=== PATIENT | female | born 1995 | race Caucasian/White ===

== ENCOUNTER → 2025-01-01 | Outpatient (CLI) | payer BC ==
--- NOTE | 2025-01-02 08:00 | CONSULTATION ---
DATE OF CONSULTATION: 01/01/2025 DICTATING PHYSICIAN: Yashira Velasco M.S., [facility] MODIFIED BARIUM SWALLOW STUDY REPORT REFERRING PHYSICIAN: Archana Khan MD HISTORY OF PRESENT ILLNESS: The patient is a 29-year-old female and consents to this evaluation. The patient's mother was present for this evaluation and history obtained from the patient and medical records. The patient reports symptoms of dysphagia including feeling a throat tightness and neck pain. She notes that this first started on vacation on 11/19. She felt like her mechanism to swallow was not working correctly and she was feeling as if her food would get stuck and her throat would get tight and then she would have a pain in the back of her neck. She has been having to chew her food very thoroughly. She notes that it is harder for her to initiate a swallow. She noted she had a canker sore on part of her tongue and it felt like some of her tongue might have gotten numb from that. The patient has a history of gastritis in the fall of 2021 and also has factor B. CURRENT DIET: In terms of caffeine, the patient has black tea in the morning and a can of Coke Zero during the day. She does not utilize tobacco products or drink alcohol. The patient has chocolate in the form of ice-cream and Oreos. In terms of dairy products, the patient has a small amount of ice-cream, yogurt on a daily basis, and cheese several times a week. The patient notes that she often rotates her meal due to tolerance of foods from her gastritis, so at this point a typical breakfast consists of yogurt, but her last typical breakfast was cranberry, almond, gums. She then snacks in the morning on Cheez-It. Lunch may be a half sandwich with ham, cheese and chan, and Oreos. She noted that this week she tried to have a Pizza Lunchable, but that it was made her throat feel good. She may also have canned chicken with crackers and an apple. She then snacks in the afternoon on string cheese and toast. A typical breakfast is tacos, chicken, pasta, and liberian fries. This is eaten between 5:00 and 6:00 on most days, but at 7:30 on Tuesdays and due to a workout class prior to that. She may have dessert of ice-cream or Oreos, but will stop eating by 7:30 and goes to bed between 10:00 and 10:30. MEDICATIONS: Omeprazole 20 mg once daily orally, famotidine 40 mg once daily orally, Depo shot, Huber Aller-Ori 10 mg p.r.n. PARAMETERS: The patient is seated in a lateral 90-degree view and administered the usual protocol of thin and nectar thick liquids, puree and solid consistencies, as well as self-regulated boluses of thin liquids from a cup. RESULTS: The patient was easily able to transfer the bolus from the anterior to the posterior oral cavity. There did not appear to be any difficulty with strength or range of motion of the tongue. There was no oral residue with the exception of a mild residue for the self-regulated bolus of the thin liquid from the cup due to taking a very large sip. In the pharyngeal stage of the swallow, there was no residue noted after the tail of the bolus passed. Elevation of the hyothyroid complex was accomplished with full range of motion. Tongue base retraction was within functional limits. Swallow initiation was within functional limits and PES opening was within functional limits. At no time was the patient noted to penetrate or aspirate on any of the bolus sizes or consistencies. It was noted in this lateral plane that for the puree bolus, the puree would pass the level of the PES opening, begin to stick below that level and then there was the occurrence of proximal movement of that puree bolus back past that PES opening in 2 out of 2 trials. ANTERIOR, POSTERIOR VIEW: In the AP plane, the thick liquid bolus splits symmetrically between the pyriform sinuses and no proximal movement was noted. IMPRESSION: The patient demonstrates what appears to be a moderate pharyngoesophageal stage swallowing disorder characterized by slow propulsion of puree and solid consistencies through the esophagus and proximal movement of the puree consistency observed in the lateral view past the level of the PES opening. DIAGNOSES: R13.14, dysphagia, pharyngoesophageal phase; K21.9, gastroesophageal reflux disease; K29.70, gastritis. PATIENT EDUCATION: Immediately following modified barium swallow study, the patient and her mom were able to view the results. The patient was able to see the proximal movement of the puree bolus, as well as the slow propulsion of the puree and solid consistency that was observed in the lateral view. She was also able to see how the thick liquid bolus was propelled adequately through the esophagus. She was instructed on dietary modifications for laryngopharyngeal reflux disease and indicated she would make further dietary changes such as cutting out her soda at this time. The patient was also educated on a manual therapy stretch to reduce tension with swallowing. The stretch was in and around the thyroid cartilage. RECOMMENDATIONS: It is recommended that the patient follow laryngopharyngeal reflux disease precautions in the form of dietary modification. LONG-TERM GOALS: The patient will maintain adequate hydration/nutrition with optimum safety and efficiency of swallow function on p.o. intake without overt signs and symptoms of aspiration for the highest possible diet level. FUNCTIONAL ORAL INTAKE: The FOIS was administered to establish and document a change in the functional eating activities of this patient over time. This is a 7-point scale with 1 indicating no oral intake and totally tube dependent and 7 indicating total oral intake with no restrictions. This patient received a 6, which indicates she has a total oral diet with multiple consistencies without special preparation but with specific food limitations and precautions. G-CODE: [id number]. Thank you very much for asking me to participate in the care of this kind patient. Should you have any questions regarding this evaluation or recommendations, please do not hesitate to contact me at [phone]. During this examination, 3 minutes 12 seconds of fluoroscopy time and 11.7 CAK mGy were utilized. Yashira Velasco M.S., [facility] TID: [id number] RECEIPT: [id number] KEANU/NASH
== END | disposition home or self-care (01) ==
LOC: RAD 13:04
PROVIDERS: ATTEND Family Medicine
DX: R13.10 Dysphagia, unspecified (principal); K21.9 Gastro-esophageal reflux disease without esophagitis; K29.70 Gastritis, unspecified, without bleeding
CPT/HCPCS: 74230